=== PATIENT | male | born 1980 | race African-American/Black ===

== ENCOUNTER 2023-05-02 16:18 | Emergency (ER) | payer BC ==
[2023-05-02 16:25] VITALS: PULSE 85; RESP 18
[2023-05-02] MEDS ORDERED: NAPR-1176 MT (17:44)
== END 2023-05-02 18:54 | disposition home or self-care (01) ==
LOC: ER 16:18
DX: M25.562 Pain in left knee (principal)
CPT/HCPCS: 73562; 99283